=== PATIENT | female | born 1955 | race Caucasian/White ===

== ENCOUNTER 2017-07-30 09:33 | Day surgery (SDC) | payer BC ==
[2017-07-30] MEDS ORDERED: FENTAnyl 50 MCG/ML VIAL (11:12)
[2017-07-30] MEDS ORDERED: MIDAZOLAM 1 MG/ML 2 ML INJ (11:12)
== END 2017-07-30 11:56 | disposition home or self-care (01) ==
LOC: GIL 09:33
DX: Z12.11 Encounter for screening for malignant neoplasm of colon (principal); K21.9 Gastro-esophageal reflux disease without esophagitis; K44.9 Diaphragmatic hernia without obstruction or gangrene; K64.8 Other hemorrhoids; K29.50 Unspecified chronic gastritis without bleeding
CPT/HCPCS: 43239; 87081

== ENCOUNTER 2019-01-07 12:10 | Inpatient (IN) | payer BC ==
[~2019-01-07 12:10] MED LIST: CEFAZOLIN 2 GM/50 ML (PMX) 50 ML IVPB
[2019-01-07] MEDS ORDERED: POLYMYXIN/BACITRACIN 1L IRRIG (14:00)
[2019-01-07] MEDS ORDERED: SEVOFLURANE 15 MIN (14:30)
[2019-01-07] MEDS ORDERED: LIDOCAINE 2% (SDV) 5 ML INJ (14:31)
[2019-01-07] MEDS ORDERED: PROPOFOL 20 ML (14:31)
[2019-01-07] MEDS ORDERED: SUCCINYLCHOLINE CHLORIDE 100 MG/5 ML SYG IV ×2 (14:31→15:38)
[2019-01-07] MEDS ORDERED: MIDAZOLAM 1 MG/ML 2 ML INJ (14:31)
[2019-01-07] MEDS ORDERED: DEXAMETHASONE 4 MG/ML 5 ML INJ (15:13)
[2019-01-07] MEDS ORDERED: FAMOTIDINE 20 MG INJ (15:13)
[2019-01-07] MEDS ORDERED: ONDANSETRON 4 MG INJ (15:13)
[2019-01-07] MEDS ORDERED: CEFAZOLIN 1 GM INJ (15:22)
[2019-01-07] MEDS: BUPIVACAINE 0.5% (SDV) 30 ML INJ (15:56)
[2019-01-07] MEDS: LIDOCAINE 1%/EPI 30 ML INJ (15:57)
[2019-01-07] MEDS: THROMBIN 5000 UNIT (RECOTHROM) VIAL (15:58)
[2019-01-07] MEDS: GELATIN SIZE 100 SPONGE (16:02)
[2019-01-07] MEDS ORDERED: DIPHENHYDRAMINE 50 MG INJ IV (17:00)
[2019-01-07] MEDS ORDERED: PROCHLORPERAZINE 10 MG INJ IV (17:00)
[2019-01-07] MEDS ORDERED: hydrALAzine 20 MG INJ IV (17:00)
[2019-01-07] MEDS ORDERED: ONDANSETRON 4 MG INJ IV (17:00)
[2019-01-07] MEDS ORDERED: FENTAnyl 50 MCG/ML VIAL IV (17:00)
[2019-01-07] MEDS ORDERED: LABETALOL HCL 20MG INJ IV (17:00)
[2019-01-07] MEDS ORDERED: HYDROmorphONE 1 MG/5 ML IV SYRINGE IV ×3 (17:00)
[2019-01-07] MEDS ORDERED: MEPERIDINE 25 MG INJ IV (17:00)
[2019-01-07] MEDS: METHYLPREDNISOLONE ACET 80 MG/ML 1 ML (17:39)
== END 2019-01-07 19:07 | disposition home or self-care (01) | DRG 520 ==
LOC: REC 12:10
PROC: 01NB0ZZ Release Lumbar Nerve, Open Approach (ICD-10-PCS; principal; 2019-01-07 14:00)
PROC: 00BY0ZZ Excision of Lumbar Spinal Cord, Open Approach (ICD-10-PCS; 2019-01-07 14:00)
DX: M48.061 Spinal stenosis, lumbar region without neurogenic claudication (principal); G96.19 Other disorders of meninges, not elsewhere classified; R20.0 Anesthesia of skin; R27.0 Ataxia, unspecified; M79.605 Pain in left leg; M79.604 Pain in right leg
CPT/HCPCS: 72114; 88304